=== PATIENT | male | born 1985 | race Caucasian/White ===

== ENCOUNTER 2020-01-12 18:43 | Emergency (ER) | payer BC ==
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
== END 2020-01-12 19:45 | disposition home or self-care (01) ==
LOC: LL.ED 18:43
DX: S93.432A Sprain of tibiofibular ligament of left ankle, initial encounter (principal); Z87.891 Personal history of nicotine dependence; X50.1XXA Overexertion from prolonged static or awkward postures, initial encounter
CPT/HCPCS: 73610-LT; 99283

== ENCOUNTER 2020-06-01 14:56 | Emergency (ER) | payer BC, OTHER ==
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
== END 2020-06-01 15:50 | disposition home or self-care (01) ==
LOC: LL.ED 14:56
DX: S90.31XA Contusion of right foot, initial encounter (principal); R03.0 Elevated blood-pressure reading, without diagnosis of hypertension; J45.909 Unspecified asthma, uncomplicated; M19.90 Unspecified osteoarthritis, unspecified site; Z87.891 Personal history of nicotine dependence; Z71.6 Tobacco abuse counseling; W23.0XXA Caught, crushed, jammed, or pinched between moving objects, initial encounter; Y92.89 Other specified places as the place of occurrence of the external cause; Y99.0 Civilian activity done for income or pay
CPT/HCPCS: 73630-RT; 99283; 99283-25

== ENCOUNTER 2023-09-24 08:08 | Emergency (ER) | payer BC ==
[2023-09-24 08:31] LABS: BASOPHILS ABSOLUTE AUTO 0.06 K/uL (0.00-0.20); BASOPHILS PERCENT AUTO 0.7 % (0.0-2.0); EOSINOPHILS ABSOLUTE AUTO 0.09 K/uL (0.00-0.50); EOSINOPHILS PERCENT AUTO 1.1 % (0.0-5.0); HEMATOCRIT 45.8 % (39.0-49.0); HEMOGLOBIN 15.3 g/dL (13.1-16.8); LYMPHOCYTES ABSOLUTE AUTO 0.92 K/uL (0.50-3.50); LYMPHOCYTES PERCENT AUTO 11.2 % (10.0-50.0); MEAN CORPUSCULAR HEMOGLOBIN 28.1 pg (28.2-33.3); MEAN CORPUSCULAR HGB CONC 33.4 g/dL (31.7-36.0); MONOCYTES ABSOLUTE AUTO 1.26 K/uL (0.00-1.00); MONOCYTES PERCENT AUTO 15.3 % (2.0-14.0); NEUTROPHILS PERCENT AUTO 71.7 % (45.0-80.0); PLATELET COUNT,PLT 264 K/uL (150-350); RED BLOOD CELL COUNT 5.45 M/uL (4.33-5.41); RED CELL DISTRIBUTION WIDTH 13.5 % (11.2-14.1); WHITE BLOOD CELL COUNT,WBC 8.2 K/uL (4.0-10.2)
[2023-09-24 08:51] LABS: ALBUMIN 4.2 g/dL (3.4-5.0); ANION GAP 9.9 meq/L (7-15); BILIRUBIN TOTAL 0.4 mg/dL (0.2-1.0); CARBON DIOXIDE,CO2 32.3 mmol/L (21.0-32.0); CREATININE 1.3 mg/dL (0.51-1.17); EST CRCL DRUG DOSING (CG) 80.76 mL/min; POTASSIUM,K 4.2 mmol/L (3.5-5.1); PROTEIN TOTAL,TP 7.9 g/dL (6.4-8.2)
[2023-09-24] MEDS ORDERED: Sodium Chloride 0.9% 10 ML Syringe FLUSH PRN (09:00)
[2023-09-24] MEDS: Sodium Chloride 0.9% 1,000 ML IV ONE (09:00)
[2023-09-24 09:07] LABS: CORONAVIRUS COVID-19 NAA NEGATIVE (NEGATIVE); INFLUENZA A NAA NEGATIVE (NEGATIVE); INFLUENZA B NAA NEGATIVE (NEGATIVE); RESPIRATORY SYNCYTIAL VIR NAA NEGATIVE (NEGATIVE)
[2023-09-24] MEDS: Albuterol 6.7 GM Inhaler INH ONE (09:42)
[2023-09-24] MEDS: Benzonatate 100 MG Cap PO ONE (09:42)
== END 2023-09-24 10:20 | disposition home or self-care (01) ==
LOC: LL.ED 08:08
DX: J98.9 Respiratory disorder, unspecified (principal); K21.9 Gastro-esophageal reflux disease without esophagitis; Z79.899 Other long term (current) drug therapy
CPT/HCPCS: 0241U; 36415; 71046; 80053; 85025; 96360; 99284-25; A9270-GY; J7030